=== PATIENT | female | born 1970 | race Caucasian/White ===

== ENCOUNTER 2019-09-26 16:38 | Emergency (ER) | payer BC ==
[~2019-09-26] VITALS: Ht 177.8 cm; Wt 86.0 kg
--- NOTE | 2019-09-26 16:40 | NUR ---
pt is 48 yo female BIB EMS from her father's home, "I don't want to live anymore...I want to drink until I " pt was in rehab in [facility] Aug 2019 for 28 days for ETOH, then went to live her dad, pt stated she couldn't stay there anymore "it is not fair to him to see his child ", she also said he was a hoarder. Pt has been drinking 1/2 gallon of vodka a day since Friday, no h/o prior attempts of suicide, "just have had thoughts", pt is resting quietly on gurney, calm and cooperative, waiting to be evaluated by provider
[2019-09-26] MEDS ORDERED: LORazepam 1 MG tablet PO ONE (17:40)
[2019-09-26 18:14] LABS: BASOPHILS % (AUTO) 0.6 % (0-1); EOSINOPHILS % (AUTO) 0.9 % (0-6); HEMATOCRIT 38.1 % (35.0-45.0); HEMOGLOBIN 12.9 g/dl (12.0-16.0); LYMPHOCYTES # (AUTO) 2.1 X10'3 (1.1-4.8); LYMPHOCYTES % (AUTO) 47.9 % (21-51); MEAN CORPUSCULAR HEMOGLOBIN 31.7 PG (27.0-31.0); MEAN CORPUSCULAR HGB CONC 33.8 g/dL (33.0-36.5); MEAN CORPUSCULAR VOLUME 93.7 FL (78-98); MEAN PLATELET VOLUME 8.1 FL (7.4-10.4); MONOCYTES # (AUTO) 0.4 X10'3 (0-0.9); MONOCYTES % (AUTO) 8.9 % (2-12); NEUTROPHILS # (AUTO) 1.8 X10'3 (1.8-7.7); NEUTROPHILS % (AUTO) 41.7 % (42-75); PLATELET COUNT 219 X10'3 (140-440); RED BLOOD COUNT 4.06 X10'6 (4.20-5.60); RED CELL DISTRIBUTION WIDTH 21.4 % (11.5-14.5); WHITE BLOOD COUNT 4.4 X10'3 (4.5-11.0)
--- NOTE | 2019-09-26 18:20 | NUR ---
pt continues to rest quietly on gurney, calm and cooperative
[2019-09-26 18:29] LABS: ALANINE AMINOTRANSFERASE 168 U/L (12-78); ALBUMIN 3.7 G/DL (3.4-5.0); ALBUMIN/GLOBULIN RATIO 1.1 (1.1-1.5); ALKALINE PHOSPHATASE 191 IU/L (46-116); ANION GAP 13 (8-16); ASPARTATE AMINO TRANSFERASE 221 U/L (10-37); BILIRUBIN,TOTAL 0.4 MG/DL (0.1-1.0); BLOOD UREA NITROGEN 11 MG/DL (7-18); BUN/CREATININE RATIO 15.5 (6.6-38.0); CALCIUM 8.6 MG/DL (8.5-10.1); CHLORIDE 105 MMOL/L (99-107); CREATININE 0.71 MG/DL (0.40-0.90); ETHANOL 0.255 GM/DL (0.0-0.010); GLUCOSE 105 MG/DL (70-104); LIPASE 126 U/L (73-393); POTASSIUM 3.8 MMOL/L (3.5-5.1); SODIUM 143 MMOL/L (135-145); TOTAL CARBON DIOXIDE 24.8 MMOL/L (24-32); eGFR 87 ML/MIN
[2019-09-26] MEDS ORDERED: normal saline 1000ML IV soln IVB ONE (18:40)
--- NOTE | 2019-09-26 18:42 | NUR ---
Pt being completely condescending when I went to tell her the doctor ordered IV fluids and an IV. "Now, after all this time?" "And he wants a urine sample, and the bathrooms here are disgusting." I left and told the PA.
--- NOTE | 2019-09-26 19:01 | NUR ---
when I went in to start her IV she had a totally different persona
[2019-09-26] MEDS ORDERED: CLON-529 PO (19:57)
[2019-09-26] MEDS ORDERED: HYDR-3686 PO (19:57)
[2019-09-26 20:03] VITALS: BP 148/90
== END 2019-09-26 20:06 | disposition home or self-care (01) ==
LOC: ER 16:38
DX: F10.129 Alcohol abuse with intoxication, unspecified (principal); I10 Essential (primary) hypertension; I25.2 Old myocardial infarction; Z88.6 Allergy status to analgesic agent; Y90.9 Presence of alcohol in blood, level not specified
CPT/HCPCS: 36415; 80053; 80320; 83690; 85025; 99283; J7030

== ENCOUNTER 2020-11-05 10:52 | Emergency (ER) | payer SELFPAY ==
[~2020-11-05] VITALS: Ht 177.8 cm; Wt 63.0 kg
[~2020-11-05 10:52] MED LIST: CLON-529 PO
[2020-11-05 10:58] VITALS: BP 123/72
[2020-11-05] MEDS ORDERED: hydrocort. acetate/pramoxine 10gm bottle RC STA (11:49)
== END 2020-11-05 12:07 | disposition home or self-care (01) ==
LOC: ER 10:53
DX: K64.4 Residual hemorrhoidal skin tags (principal); I10 Essential (primary) hypertension; I25.2 Old myocardial infarction; Z72.89 Other problems related to lifestyle; Z59.0 Homelessness; Z88.8 Allergy status to other drugs, medicaments and biological substances; Z79.899 Other long term (current) drug therapy
CPT/HCPCS: 99283